=== PATIENT | male | born 1945 | race Caucasian/White ===

== ENCOUNTER → 2017-06-10 | Outpatient (CLI) | payer MEDICARE, OTHER ==
[~2017-06-10] MED LIST: AMI10 PO; DIPH-1 PO; DIURETIC; FAM20 PO; FINA5TAB67 PO; IBU200 PO; MAGN296S35 PO; MAX75 PO; MULT-1335 PO; TAMS0.4C25 PO; TEST200V IM; TEST200V20 IM
[2017-06-10 12:10] LABS: PLATELET COUNT, AUTOMATED 137 K/uL (150-450)
--- NOTE | 2017-06-10 14:59 | EKG ---
FACILITY: [facility] PATIENT NAME: KRYSTAL SORIANO : [id number] MR: [id number] V: [id number] EXAM DATE: ORDERING PHYSICIAN: STEVEN PERAZA TECHNOLOGIST: ROCKY Hines Reason : PRE-OP Blood Pressure : / mmHG Vent. Rate : 055 BPM Atrial Rate : 054 BPM P-R Int : 186 ms QRS Dur : 088 ms QT Int : 426 ms P-R-T Axes : 046 028 034 degrees QTc Int : 407 ms Sinus bradycardia Otherwise normal ECG Confirmed by SILVIA CARTER ([id number]) on 06/10/2017 5:31:33 PM Referred By: KARMEN Confirmed By:SILVIA CARTER
== END ==
LOC: RESP 11:00
PROVIDERS: ATTEND Orthopaedic Surgery
DX: Z01.812 Encounter for preprocedural laboratory examination (principal); Z01.810 Encounter for preprocedural cardiovascular examination; M48.061 Spinal stenosis, lumbar region without neurogenic claudication; R00.1 Bradycardia, unspecified
CPT/HCPCS: 36415; 82040; 82247; 82310; 82374; 82435; 82565; 82947; 84075; 84132; 84155; 84295; 84450; 84460; 84520; 85025; 93005

== ENCOUNTER → 2017-07-08 | Outpatient (CLI) | payer MEDICARE, OTHER ==
[2017-07-08 08:52] LABS: PLATELET COUNT, AUTOMATED 145 K/uL (150-450)
== END ==
LOC: LAB 08:29
PROVIDERS: ATTEND Anesthesiology
DX: Z01.812 Encounter for preprocedural laboratory examination (principal); M48.061 Spinal stenosis, lumbar region without neurogenic claudication
CPT/HCPCS: 36415; 85025

== ENCOUNTER 2017-07-15 01:02 | Day surgery (SDC) | payer MEDICARE, OTHER ==
[~2017-07-15] VITALS: Ht 180.3 cm; Wt 83.9 kg
[2017-07-15] MEDS ORDERED: THROMBIN (BOVINE) 20,000 UNIT VIAL ONE (06:22)
[2017-07-15 12:00] VITALS: BP 154/96
[2017-07-15] MEDS ORDERED: LIDOCAINE MPF 1% 5 ML VIAL ONE (12:31)
[2017-07-15] MEDS ORDERED: ONDANSETRON 4 MG/2 ML VIAL ONE (12:31)
[2017-07-15] MEDS ORDERED: DEXAMETHASONE SOD PHOS 10MG/ML ONE (12:31)
[2017-07-15] MEDS ORDERED: PROPOFOL EMUL(*) 10MG/ML 20 ML 20 ML ONE (12:31)
[2017-07-15] MEDS ORDERED: fentaNYL CITR 250 MCG/5 ML AMP ONE (12:32)
[2017-07-15] MEDS ORDERED: BUPIVACAIN 0.25% INJ 50ML VIAL ONE (12:39)
--- NOTE | 2017-07-15 14:55 | RADIOLOGY IMAGING REPORT ---
FACILITY: [facility] [place] PATIENT NAME: Naveed Chou : 1945 MR: [id number] V: [id number] EXAM DATE: ORDERING PHYSICIAN: STEVEN PERAZA TECHNOLOGIST: Location: [facility] [place] Patient: Naveed Chou : 1945 Visit/Account:[id number] Date of Sevice: 07/15/2017 Exam type: LUMBAR SPINE 1 VIEW History: L3-L4 DISC HERNIATION Comparison: March 28, 2010. Findings: A single intraoperative prone lateral view of the lumbar spine was submitted. A metallic probe proje cts between the posterior spinous processes of L4 and L5. Surgical instruments and sponge markers pr oject over the intraoperative field. IMPRESSION: 1. As above Report Dictated By: Shalini Alejandra MD at 07/15/2017 2:48 PM Report E-Signed By: Shalini Alejandra MD at 07/15/2017 2:51 PM WSN:[email or web address]
[2017-07-15] MEDS ORDERED: NS 0.9% IRRIGATION 1000ML PLCT IR ONE (14:58)
[2017-07-15] MEDS ORDERED: KETAMINE HCL 200 MG/20 ML MDV ONE (15:00)
[2017-07-15] MEDS ORDERED: SUGAMMADEX SOD 200 MG/2 ML SDV ONE (15:00)
[2017-07-15] MEDS ORDERED: ROCURONIUM BROM 10 MG/ML 10 ML ONE (15:00)
[2017-07-15] MEDS ORDERED: KETOROLAC 30 MG/ML VIAL ONE (15:46)
[2017-07-15] MEDS ORDERED: fentaNYL CITR 100 MCG/2 ML AMP ONE (15:54)
[2017-07-15] MEDS ORDERED: PER PO (16:07)
[2017-07-15] MEDS ORDERED: DIA5 PO (16:09)
[2017-07-15] MEDS ORDERED: DOCU240C84 PO (16:09)
[2017-07-15] MEDS ORDERED: LABETALOL HCL 100 MG/20ML VIAL ONE (16:28)
[2017-07-15 16:30] VITALS: BP 158/98
[2017-07-15] MEDS ORDERED: FAMOTIDINE 20 MG TAB PO ONE (16:30)
[2017-07-15] MEDS ORDERED: NORMOSOL R SOLN(*) 1000 ML BAG 1,000 ML IV PRN (16:30)
[2017-07-15] MEDS ORDERED: LIDOCAINE/SOD BICARB 8.4% SYR ID ONE (16:30)
[2017-07-15] MEDS ORDERED: MIDAZOLAM 2 MG/2 ML VIAL IVP PRN (16:30)
[2017-07-15] MEDS ORDERED: ceFAZolin(*) 2GM/D5W 50ML 50 ML IVPB ONE (16:30)
[2017-07-15 16:45] VITALS: BP 167/103
[2017-07-15 16:48] VITALS: BP 140/104
[2017-07-15 16:50] VITALS: BP 139/97
--- NOTE | 2017-07-15 17:11 | OPERATIVE REPORT 1 ---
EVENT DATE: July 15, 2017 SURGEON: Jaquan Rahman MD ANESTHESIOLOGIST: Gregorio Nevarez MD ANESTHESIA: General endotracheal anesthesia. DESIGN CHECKER: John Minaya PA-C PREOPERATIVE DIAGNOSIS Lumbar spinal stenosis with neurogenic claudication and radiculopathy. POSTOPERATIVE DIAGNOSIS Lumbar spinal stenosis with neurogenic claudication and radiculopathy. PROCEDURE PERFORMED L2 to L4 revision laminectomy. INTRAVENOUS FLUIDS 1200 mL ESTIMATED BLOOD LOSS 150 mL IMPLANTS USED None. SPECIMENS None. DRAINS None. COMPLICATIONS None. DISPOSITION Post-anesthesia care unit. INDICATIONS FOR SURGERY Mr. Chou is a 71-year-old gentleman who about a year ago underwent right- sided laminoforaminotomies at L2-L3 and L3-L4. He initially had some relief of the symptoms, but they then quickly returned with ongoing radiating pain into the left greater than right groin and down the anterior thigh. His physical examination was essentially normal, but his imaging studies showed bilateral lateral recess and foraminal stenoses at the L2-L3 and L3-L4 levels. He had tried injections, medications, activity modification, etc., with no real improvement. Secondary to ongoing symptoms and lack of improvement with nonsurgical care, Mr. Chou was offered and elected to undergo L2 to L4 laminectomy. CONSENT Prior to surgery, I explained in detail to the patient the possible risks of surgery. These risks include bleeding, infection, nerve injury, spinal fluid leak, persistent and/or worsening pain, , blindness, sexual dysfunction, autonomic nervous system dysfunction, and other unforeseen medical and surgical complications. I explained to him that the risk of these complications was increased secondary to the revision nature of the operation. He voiced an understanding and wished to proceed. DESCRIPTION OF PROCEDURE On the date of surgery, the patient was met in the preoperative hold area, and all questions were answered. The operative site was identified and marked by myself. The patient was taken to the operating room, and after succumbing to anesthesia, he was positioned in the prone position on a Rob table. All bony protuberances and soft tissues were well padded in the standard fashion. Care was taken to maintain appropriate perfusion pressures during anesthesia. Preoperative antibiotics were administered according to the appropriate timing schedule. At the conclusion of the procedure, the sponge and needle counts were correct times two. A final timeout was undertaken by members of the operating team to confirm correct patient, correct levels, and correct surgery. The patient was then prepped and draped in the standard sterile orthopedic fashion. An incision was made overlying the intended surgical levels. Sharp dissection was carried down to the posterior elements, and soft tissues were then elevated off the posterior elements in a subperiosteal manner. Hemostasis was obtained, and a lateral radiograph was shot to confirm correct levels. A Leksell rongeur was used to remove the spinous processes of L2 and L3. The lamina was thinned down the midline, and a curette was then used to undermine the insertion of the ligamentum flavum from the inferior aspect of L3. Care was taken to utilize a [place] to free up any dural adhesions prior to use of the Kerrison punch. A midline decompression was performed using a combination of 3.0 and 4.0 Kerrisons. At the L2-L3 level in particular, a significant amount of scar tissue was encountered. We were ultimately able to free the scarred tissue as well as the ligamentum flavum up out in the lateral recesses to allow us to complete the decompression, but significant adhesion forced us to leave some of the scar tissue on the posterior dura to avoid durotomy. The lateral recesses, however, were still able to be well decompressed utilizing 3.0 and 4.0 Kerrison punches bilaterally. Ultimately, we decompressed the lateral recesses at L2-L3 and L3-L4 and performed foraminotomies of all involved nerve roots. At the conclusion of the procedure, I was able to utilize a [place] elevator to feel out to the pedicles bilaterally and ensure that the nerve roots were well decompressed. Hemostasis was then obtained utilizing FloSeal and surgical patties, and the wound was then irrigated with 2 L of antibiotic-impregnated fluid. All bleeding was stopped and patties withdrawn. The wound was then closed in layers using interrupted sutures for the deep fascia, inverted interrupted sutures for the subcutaneous tissue, and then a running subcuticular skin stitch. Sponge and needle counts were correct times two. POSTOPERATIVE CARE PLAN Mr. Chou is scheduled to be able to go home today; however, if he needs to, we will admit him overnight for observation. Once he meets discharge criteria including voiding spontaneously, tolerating p.o. intake, and with good pain control, then he will be discharged home. He will follow up with me in two weeks for wound check and examination. SMITA
[2017-07-15 17:42] VITALS: BP 142/77
[2017-07-22] MEDS ORDERED: TAMS0.4C25 PO (10:39)
[2017-07-29] MEDS ORDERED: TEST200V IM (08:26)
== END 2017-07-15 16:20 | disposition home or self-care (01) ==
LOC: OR 01:02
PROVIDERS: ATTEND Orthopaedic Surgery
DX: M48.062 Spinal stenosis, lumbar region with neurogenic claudication (principal)
CPT/HCPCS: 63005; 72020; A9270; J1100; J1885; J2001; J2405; J2704; J3010; J3490; J0690

== ENCOUNTER → 2017-12-24 | Outpatient (CLI) | payer MEDICARE, OTHER ==
[~2017-12-24] MED LIST changes: +DIA5 PO; +DOCU240C84 PO; +PER PO; +PNEU0.5D3 IM
[2017-12-24 06:52] LABS: PLATELET COUNT, AUTOMATED 137 K/uL (150-450)
[2017-12-24 07:12] LABS: LDL CHOLESTEROL 110 mg/dl
== END ==
LOC: LAB 06:39
PROVIDERS: ATTEND Nurse Practitioner Family
DX: Z12.5 Encounter for screening for malignant neoplasm of prostate (principal); E29.8 Other testicular dysfunction; N40.0 Benign prostatic hyperplasia without lower urinary tract symptoms; Z79.899 Other long term (current) drug therapy
CPT/HCPCS: 36415; 84403; 84443; 85025; G0103; 82040; 82247; 82310; 82374; 82435; 82465; 82565; 82947; 83718; 84075; 84132; 84153; 84155; 84295; 84450; 84460; 84478; 84520

== ENCOUNTER 2018-01-06 07:54 | Outpatient (RCR) | payer MEDICARE, OTHER ==
[2018-01-06 08:10] LABS: PLATELET COUNT, AUTOMATED 182 K/uL (150-450)
[2018-01-11] MEDS ORDERED: OXYGENHOME INH (14:17)
[2018-01-14] MEDS ORDERED: TAMS0.4C25 PO (16:57)
[2018-01-14] MEDS ORDERED: FINA5TAB67 PO (16:57)
[2018-01-20] MEDS ORDERED: TEST200V IM (08:34)
== END 2018-01-08 18:00 | disposition home or self-care (01) ==
LOC: US 07:54 → EDSTATUS 01-08 07:54 → US 01-08 18:00
PROVIDERS: ATTEND Nurse Practitioner Family
DX: I71.2 Thoracic aortic aneurysm, without rupture (principal); R53.83 Other fatigue
CPT/HCPCS: 36415; 82306; 82607; 82746; 83921; 84403; 85007; 85027; 93306

== ENCOUNTER → 2018-02-12 | Outpatient (CLI) | payer MEDICARE, OTHER ==
[~2018-02-12] MED LIST changes: +OXYGENHOME INH
== END ==
LOC: RESP 20:41
PROVIDERS: ATTEND Nurse Practitioner Family
DX: G47.33 Obstructive sleep apnea (adult) (pediatric) (principal); G47.37 Central sleep apnea in conditions classified elsewhere

== ENCOUNTER → 2018-03-22 | Outpatient (CLI) | payer MEDICARE, OTHER ==
[2018-03-22 10:17] LABS: PLATELET COUNT, AUTOMATED 165 K/uL (150-450)
== END ==
LOC: LAB 10:00
PROVIDERS: ATTEND Nurse Practitioner Family
DX: E29.1 Testicular hypofunction (principal); R71.8 Other abnormality of red blood cells
CPT/HCPCS: 36415; 84403; 85025

== ENCOUNTER → 2018-03-22 | Outpatient (CLI) | payer MEDICARE, OTHER | LOC: LAB 10:01 | PROVIDERS: ATTEND Urology | DX: Z12.5 Encounter for screening for malignant neoplasm of prostate (principal) | CPT/HCPCS: 84153 ==

== ENCOUNTER → 2018-04-09 | Outpatient (CLI) | payer MEDICARE, OTHER ==
[~2018-04-09] MED LIST changes: +CPAP
== END ==
LOC: RESP 20:46
PROVIDERS: ATTEND Nurse Practitioner Family
DX: G47.33 Obstructive sleep apnea (adult) (pediatric) (principal); G47.36 Sleep related hypoventilation in conditions classified elsewhere

== ENCOUNTER → 2018-04-21 | Outpatient (CLI) | payer MEDICARE, OTHER | LOC: LAB 09:44 | PROVIDERS: ATTEND Nurse Practitioner Family | DX: E29.1 Testicular hypofunction (principal) | CPT/HCPCS: 36415; 84403 ==

== ENCOUNTER → 2018-04-28 | Outpatient (CLI) | payer MEDICARE, OTHER | LOC: LAB 08:38 | PROVIDERS: ATTEND Physical Medicine & Rehabilitation Pain Medicine | DX: M54.9 Dorsalgia, unspecified (principal); M79.606 Pain in leg, unspecified; Z98.890 Other specified postprocedural states | CPT/HCPCS: 36415; 82565 ==

== ENCOUNTER → 2018-08-06 | Outpatient (CLI) | payer MEDICARE, OTHER ==
--- NOTE | 2018-08-06 16:01 | RADIOLOGY IMAGING REPORT ---
FACILITY: [facility] PATIENT NAME: Naveed Chou : 1945 MR: [id number] V: [id number] EXAM DATE: ORDERING PHYSICIAN: SILVIA GIRARD TECHNOLOGIST: Location: [facility] Patient: Naveed Chou : 1945 Visit/Account:[id number] Date of Sevice: 08/06/2018 PA chest, one view, and right rib detail, three views. HISTORY: Right posterior rib pain. COMPARISON: None. The heart size is normal. The thoracic aorta is mildly elongated. Pulmonary vessels are normal. Th e pleural surfaces are unremarkable. Small nodular densities consistent with buttons in the patient' s clothing, or nipple shadows, project on the lower chest bilaterally. A metal marking BB projects o n the right lower chest. The right ribs are unremarkable. IMPRESSION: No evidence of acute cardiopulmonary disease. Negative right ribs. Report Dictated By: Aleksey Payne MD at 08/06/2018 3:55 PM Report E-Signed By: Aleksey Payne MD at 08/06/2018 3:57 PM WSN:[email or web address]
== END ==
LOC: RAD 15:08
PROVIDERS: ATTEND Nurse Practitioner Family
DX: R07.81 Pleurodynia (principal)
CPT/HCPCS: 71100

== ENCOUNTER 2018-09-02 06:56 | Outpatient (RCR) | payer MEDICARE, OTHER ==
--- NOTE | 2018-09-02 17:04 | RADIOLOGY IMAGING REPORT ---
FACILITY: [facility] PATIENT NAME: Naveed Chou : 1945 MR: [id number] V: [id number] EXAM DATE: ORDERING PHYSICIAN: SILVIA GIRARD TECHNOLOGIST: Location: [facility] Patient: Naveed Chou : 1945 Visit/Account:[id number] Date of Sevice: 09/02/2018 CAROTID HISTORY: memory changes COMPARISON: None. FINDINGS: Grayscale, duplex and color Doppler interrogation of the extracranial carotid and vertebral arteries was performed bilateral. On the right, peak systolic velocities within the common and internal carotid arteries are 90 and 67 cm/sec respectively. . Antegrade flow within the common, internal and external carotid arteries as w ell as vertebral artery. ICA/CCA ratio 0.8. On the left, peak systolic velocities within the common and internal carotid arteries are 93 and 58 c m/sec respectively. There is a tiny amount of plaque at the left carotid bulb. Antegrade flow withi n the common, internal and external carotid arteries as well as vertebral artery. ICA/CCA ratio 0.8. IMPRESSION: Tiny amount of plaque at the left carotid bulb although no hemodynamically significant lesions identi fied by velocity criteria Velocity criteria are extrapolated from diameter data as defined by the Society of Radiologists in [place] [facility] Consensus Conference Radiology 2003; 229;340-346 Report Dictated By: Shalini Alejandra MD at 09/02/2018 4:58 PM Report E-Signed By: Shalini Alejandra MD at 09/02/2018 5:00 PM WSN:[email or web address]
== END 2018-09-02 18:00 | disposition home or self-care (01) ==
LOC: US 06:56
PROVIDERS: ATTEND Nurse Practitioner Family
DX: R41.3 Other amnesia (principal)
CPT/HCPCS: 36415; 82533; 82627; 82670; 84140; 84144; 84402; 84403; 93880